=== PATIENT | female | born 1935 | race Caucasian/White ===

== ENCOUNTER → 2017-08-28 | Outpatient (CLI) | payer MEDICARE, BC ==
[~2017-08-28] MED LIST: CARVEDILOL6.25 MG PO; DIGOXIN125 MCG PO; LEVOTHYROXINE25 MCG PO; LISINOPRIL10 MG PO; LORAZEPAM0.5 MG PO; NITROGLYCERIN1 EAC1 TD; PANTOPRAZOLE SO40 MG PO; PROTONIX40 MG/ML PO; SPIRONOLACTONE25 MG PO; TRIAMTERENE-HC1 EAC2
[2017-08-28 10:15] LABS: BILIRUBIN,URINE NEGATIVE (NEGATIVE); CLARITY,URINE SL CLOUDY (CLEAR); COLOR,URINE YELLOW (YELLOW); KETONES,URINE NEGATIVE (NEGATIVE); LEUKOCYTE ESTERASE ,URINE TRACE (NEGATIVE); NITRITE,URINE NEGATIVE (NEGATIVE); PROTEIN,URINE DIPSTICK NEGATIVE (NEGATIVE); URINE UROBILINOGEN 0.2 mg/dL (0.2 - 1)
[2017-08-28 10:23] LABS: EPITHELIAL CELLS,URINE MODERATE /LPF; TRANSITIONAL EPI CELLS,URINE RARE
== END ==
LOC: RAD 09:05
PROVIDERS: ATTEND Internal Medicine Cardiovascular Disease
DX: I82.429 Acute embolism and thrombosis of unspecified iliac vein (principal)
CPT/HCPCS: 81001; 87086; 93971

== ENCOUNTER 2018-04-28 16:52 | Inpatient (IN) | payer MEDICARE, BC ==
[~2018-04-28] VITALS: Ht 170.2 cm; Wt 79.8 kg
[2018-04-28] MEDS: LISINOPRIL 2.5 MG TAB PO SCH (00:20)
[2018-04-28 17:30] LABS: BILIRUBIN,URINE NEGATIVE (NEGATIVE); CLARITY,URINE CLEAR (CLEAR); COLOR,URINE YELLOW (YELLOW); KETONES,URINE NEGATIVE (NEGATIVE); LEUKOCYTE ESTERASE ,URINE TRACE (NEGATIVE); NITRITE,URINE NEGATIVE (NEGATIVE); PROTEIN,URINE DIPSTICK TRACE (NEGATIVE); URINE UROBILINOGEN 0.2 mg/dL (0.2 - 1)
[2018-04-28 17:40] LABS: AMORPHOUS SEDIMENT,URINE MANY (FEW); BACTERIA,URINE MANY /HPF; EPITHELIAL CELLS,URINE MODERATE /LPF; TRANSITIONAL EPI CELLS,URINE FEW
[2018-04-28 17:49] LABS: BASOPHILS % 0.3 % (0.0-1.0); EOSINOPHILS % 0.1 % (0.0-6.0); HEMATOCRIT 34.9 % (34.2-44.1); HEMOGLOBIN 12.1 g/dL (12.0-16.0); LYMPHOCYTES # (AUTO) 0.8 (1.0-3.2); LYMPHOCYTES % 6.1 % (18.0-39.1); MEAN CORPUSCULAR HEMOGLOBIN 29.4 pg (28-32); MEAN CORPUSCULAR HGB CONC 34.7 g/dL (31-35); MEAN CORPUSCULAR VOLUME 84.9 fL (81-99); MONOCYTES # (AUTO) 0.9 (0.2-0.8); MONOCYTES % 6.9 % (4.4-11.3); NEUTROPHILS # (AUTO) 10.7 (2.1-6.9); NEUTROPHILS % 85.2 % (38.7-80.0); PLATELET COUNT 183 x10e3/uL (140-360); RED BLOOD COUNT 4.11 x10e6/uL (3.6-5.1); RED CELL DISTRIBUTION WIDTH 13.3 % (11.7-14.4)
[2018-04-28] MEDS ORDERED: ONDANSETRON HCL INJ 2MG/ML 2ML 2 MG/ML VIAL IV STA (17:58)
[2018-04-28] MEDS ORDERED: SODIUM CHLORIDE 0.9% 1000ML 1,000 ML IV STA (17:58)
[2018-04-28] MEDS ORDERED: CEFTRIAXONE SOD 1 GM/NS 50 ML 50 ML IV STA (17:58)
[2018-04-28] MEDS ORDERED: ATORVASTATIN CA10 MG PO (18:01)
[2018-04-28] MEDS ORDERED: LEVEMIR (18:01)
[2018-04-28] MEDS ORDERED: LISINOPRIL2.5 MG PO (18:01)
[2018-04-28] MEDS ORDERED: HUMALOG100 UNIT/3 SC (18:03)
[2018-04-28] MEDS ORDERED: VERAPAMIL ER120 M1 PO (18:03)
[2018-04-28] MEDS ORDERED: AMOX TR-K CLV1 EAC1 PO (18:06)
[2018-04-28 18:10] LABS: ALBUMIN 2.9 g/dL (3.5-5.0); ALBUMIN/GLOBULIN RATIO 0.6 (0.8-2.0); ANION GAP 14.5 mmol/L (8-16); CALCIUM 9.8 mg/dL (8.4-10.2); CREATININE, SERUM 1.51 mg/dL (0.57-1.11); POTASSIUM 3.5 mmol/L (3.5-5.1)
[2018-04-28 18:16] LABS: INR 0.97; PARTIAL THROMBOPLASTIN TIME 31.5 seconds (23.8-35.5); PROTHROMBIN TIME 13.4 seconds (11.9-14.5)
[2018-04-28 18:26] LABS: CREATINE KINASE MB 4.8 ng/mL (0-5.0)
[2018-04-28] MEDS ORDERED: DEXTROSE 50% SYRINGE 50 ML IV PRN (19:45)
[2018-04-28] MEDS ORDERED: CEFTRIAXONE SOD 1 GM/NS 50 ML 50 ML IV SCH (19:45)
[2018-04-28] MEDS: SODIUM CHLORIDE 0.9% 1000ML 1,000 ML IV SCH ×2 (19:50→21:47)
--- NOTE | 2018-04-28 20:23 | NUR ---
Patient arrived to the unit to Rm 214 (from ED) via stretcher bed in stable condition. Pt alert and oriented x3. Pt appear very weak especially on both legs as she was assisted transferring from stretcher to bed. On IVF (NS @ 125ml/hr) and scheduled IV antibiotics. Pt with dx of Hyponatremia, Renal Insufficiency and UTI. Call vazquez within reach. Daughter at bedside.
[2018-04-28 20:27] VITALS: BP 141/65
[2018-04-28 20:30] VITALS: BP 141/65
[2018-04-28] MEDS: INSULIN REGULAR, HUMAN 100 UNIT/1 ML 3ML VIAL SQ SCH (20:49)
--- NOTE | 2018-04-28 21:00 | NUR ---
Fingerstick blood glucose was 53 and pt immediately given jelo and 2 cups of apple juice. Patient still alert and oriented x3.
--- NOTE | 2018-04-28 21:23 | Diagnostic Imaging Report ---
EXAMINATION: CHEST SINGLE (PORTABLE) INDICATION: Kidney infection. COMPARISON: None FINDINGS: AP view TUBES and LINES: None. LUNGS: Lungs are well inflated. Lungs are clear. There is no evidence of pneumonia or pulmonary edema. PLEURA: No pleural effusion or pneumothorax. HEART AND MEDIASTINUM: The cardiomediastinal silhouette is unremarkable. BONES AND SOFT TISSUES: No acute osseous lesion. Soft tissues are unremarkable. UPPER ABDOMEN: No free air under the diaphragm. IMPRESSION: No acute thoracic abnormality. Signed by: DR. Waqar Winter MD on 04/28/2018 9:20 PM
--- NOTE | 2018-04-28 21:40 | NUR ---
Fingerstick blood glucose was 53 and pt c/o feeling weak and appear shaking a lot. Patient immediately given1 amp of D50% as per protocol.
--- NOTE | 2018-04-28 22:20 | NUR ---
Patient appear well and has not shaking at this time. BS check was 153. Will monitor closely
--- NOTE | 2018-04-28 23:30 | NUR ---
Spoke with Dr. Mario (over the phone) and MD re-ordered all of patient's home medications.
[2018-04-28] MEDS ORDERED: LORAZEPAM0.5 MG PO (23:38)
[2018-04-28] MEDS ORDERED: NITROSTAT0.4 MG (23:38)
[2018-04-28] MEDS ORDERED: SPIRONOLACTONE 25 MG TAB PO PRN (23:45)
[2018-04-28] MEDS ORDERED: NITROGLYCERIN 0.4 MG SUBL SL PRN (23:45)
[2018-04-28] MEDS ORDERED: LORAZEPAM 0.5 MG TAB PO PRN (23:45)
[2018-04-29] VITALS (8 sets, daily range): BP systolic 109–156; BP diastolic 54–67
[2018-04-29] MEDS: ACETAMINOPHEN 325 MG TAB PO PRN ×2 (00:50→22:15)
--- NOTE | 2018-04-29 07:05 | NUR ---
Received patient mid fowlers position, side rails upx2, call light within reach, daughter at bedside. Resting with eyes closed. Arousable to verbal stimuli. Respirations even and unlabored. Will continue to monitor.
[2018-04-29] MEDS: INSULIN REGULAR, HUMAN 100 UNIT/1 ML 3ML VIAL SQ SCH ×4 (07:30→21:38)
[2018-04-29] MEDS: ATORVASTATIN 40 MG TAB PO SCH (08:04)
[2018-04-29] MEDS: LISINOPRIL 2.5 MG TAB PO SCH ×2 (08:04→16:09)
[2018-04-29] MEDS: PANTOPRAZOLE SOD 40 MG TABEC PO SCH (08:04)
[2018-04-29] MEDS: SODIUM CHLORIDE 0.9% 1000ML 1,000 ML IV SCH ×2 (08:05→16:09)
[2018-04-29] MEDS: LEVOTHYROXINE SODIUM 25 MCG TABLET PO SCH (09:44)
[2018-04-29] MEDS: VERAPAMIL HCL 120 MG TABSR PO SCH (09:44)
[2018-04-29] MEDS: AMOXICILLIN/CLAVULANATE K 500 MG TAB PO SCH ×2 (11:00→16:08)
--- NOTE | 2018-04-29 11:31 | NUR ---
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 See orders
--- NOTE | 2018-04-29 14:58 | NUR ---
aware of RUE swelling. See orders
--- NOTE | 2018-04-29 19:20 | NUR ---
Report given to oncoming nurse of patient's status. NO s/s of acute distress noted.
--- NOTE | 2018-04-29 19:25 | NUR ---
Patient visited in room during nursing rounds. Patient alert and oriented x3. No distress or discomfort noted. Patient ambulatory with assist and use of walker in room prn. On IVF (NS at 125ml/hr). Call vazquez within reach. Will monitor closely.
[2018-04-29] MEDS ORDERED: CEFTRIAXONE SOD 1 GM/NS 50 ML 50 ML IV SCH (20:00)
[2018-04-29] MEDS: ONDANSETRON HCL INJ 2MG/ML 2ML 2 MG/ML VIAL IV PRN (22:12)
[2018-04-30] VITALS (7 sets, daily range): BP systolic 128–173; BP diastolic 60–75
[2018-04-30] MEDS: SODIUM CHLORIDE 0.9% 1000ML 1,000 ML IV SCH ×3 (01:39→20:27)
[2018-04-30 05:39] LABS: ANION GAP 11.8 mmol/L (8-16); CALCIUM 8.6 mg/dL (8.4-10.2); CHOL/HDL RATIO 6.6 (3.0-3.6); CREATININE, SERUM 1.16 mg/dL (0.57-1.11); POTASSIUM 3.8 mmol/L (3.5-5.1)
[2018-04-30] MEDS: PANTOPRAZOLE SOD 40 MG TABEC PO SCH (06:09)
[2018-04-30] MEDS: LEVOTHYROXINE SODIUM 25 MCG TABLET PO SCH (06:09)
[2018-04-30] MEDS: INSULIN REGULAR, HUMAN 100 UNIT/1 ML 3ML VIAL SQ SCH ×4 (07:30→21:00)
--- NOTE | 2018-04-30 07:44 | History and Physical ---
HISTORY OF PRESENT ILLNESS: This 82-year-old patient presented through the emergency room and was admitted with urinary tract infection. The patient stated that it started with right lumbar pain, fever, chills, and frequent urination about 5 days ago. She was seen by her bindery library technical assistant Dr. Barahona and started on antibiotics. However, the patient stated that she got worse and became very weak, also she was nauseated, unable to eat and was advised by Dr. Barahona to go to the emergency room and is now admitted to the hospital. The patient stated she had previous urinary tract infections and also history of kidney stones. The patient's past history reveals that she had a cholecystectomy and hemorrhoidectomy. She had contusion of left foot with persistent edema. She has varicosities and stasis dermatitis; hypothyroidism; diabetes mellitus, on insulin; COPD; she had previous myocardial infarction and Takotsubo cardiomyopathy, with some mild coronary artery disease; history of spastic colon and diverticulitis, GERD, and hypertension. ALLERGIES: VICODIN, CEPHALEXIN, VIBRAMYCIN, BENTYL, PARAFON FORTE, DAYPRO, DOXYCYCLINE, CHLORZOXAZONE. SOCIAL HISTORY: Negative. FAMILY HISTORY: Noncontributory. REVIEW OF SYSTEMS: The remainder of systems reviewed. The patient denies any headache or sore throat. The patient denies any cough or sputum production. She denies any chest pain. The patient denies any abdominal pain. PHYSICAL EXAMINATION: VITAL SIGNS: Blood pressure 115/60, temperature 99.3, oxygen saturation 95%. NECK: Carotid pulses are present. CHEST: Clear to auscultation. CARDIOVASCULAR: Normal apical impulse. The rhythm is regular. First and second heart sounds normal. There is no S3. There is no rub. ABDOMEN: Soft. There is no tenderness or organomegaly. EXTREMITIES: Pulses are present. There is evidence of stasis dermatitis, with brownish discoloration of lower legs. There is no edema on the legs; however, there is scarring of right arm. NEUROLOGIC: Does not reveal any motor defect. IMPRESSION: 1. Urinary tract infection. 2. Coronary artery disease. 3. Hypertension. 4. Chronic kidney disease. 5. Hyponatremia. 6. Diabetes mellitus. 7. Hypothyroidism. 8. Hyperlipidemia. 9. Gastroesophageal reflux disease. MD BRADLEY Kelley/FLORL /[id number] cc: John Barahona
[2018-04-30] MEDS: ATORVASTATIN 40 MG TAB PO SCH (09:00)
[2018-04-30] MEDS: AMOXICILLIN/CLAVULANATE K 500 MG TAB PO SCH (09:36)
[2018-04-30] MEDS: LISINOPRIL 2.5 MG TAB PO SCH ×2 (09:36→16:53)
[2018-04-30] MEDS: VERAPAMIL HCL 120 MG TABSR PO SCH (09:36)
[2018-04-30] MEDS ORDERED: LISINOPRIL 2.5 MG TAB PO SCH (12:00)
[2018-04-30] MEDS ORDERED: CEFEPIME HCL 1 GM VIAL IV SCH (12:00)
[2018-04-30] MEDS ORDERED: CEFEPIME 1GM/NS 0.9% 50 ML 50 ML IV SCH (12:05)
[2018-04-30] MEDS ORDERED: LISINOPRIL 2.5 MG TAB PO ONE (13:15)
[2018-04-30 14:33] LABS: AMYLASE 32 U/L (25-125); LIPASE 37 U/L (8-78)
[2018-04-30] MEDS: CEFEPIME 1GM/NS 0.9% 50 ML 50 ML IV SCH (14:40)
--- NOTE | 2018-04-30 16:20 | NUR ---
Patient did not want to hold dinner for CT scan. She stated, "I need to eat." Virginie in CT scan notified and CT will have to be done tomorrow.
[2018-04-30] MEDS: ACETAMINOPHEN 325 MG TAB PO PRN (20:30)
--- NOTE | 2018-04-30 20:30 | NUR ---
PATIENT AWARE NORTRIPTYLINE NOT AVAILABLE FROM PHARMACY AND STATED GRANDDAUGHTER WILL BRING MEDICATION TOMORROW AM. Addendum: 04/30/18 at 2315 by Ramiro Moya RN PLEASE DISREGARD THIS NOTE. WRONG PATIENT.
[2018-05-01] VITALS (8 sets, daily range): BP systolic 136–180; BP diastolic 64–77
--- NOTE | 2018-05-01 01:02 | Consultation ---
DATE OF CONSULTATION: REASON FOR CONSULTATION: UTI and abdominal pain. HISTORY OF PRESENT ILLNESS: This patient is a very pleasant 82-year-old white female, comes in with fever and chills started 5 days ago with diarrhea, then fever, chills, had right-sided abdominal pain going to her mid abdomen and the patient apparently was admitted with UTI. There was concern if she is allergic to cephalosporin. The patient was admitted. She received Rocephin. I am asked to see her. She is currently lying in bed comfortably. She is telling me she had rash. Also she saw a research program intern, who gave her local cream, hydrocortisone and antifungal. The patient was admitted with diagnosis of UTI. I am asked to see her. Her blood cultures, there is no growth. Her urine cultures, there is no growth in 24 hours. Her white count 12.5, hemoglobin 12, and hematocrit 34. Her sodium 132, potassium 3.8, creatinine 1.16. Her chest x-ray is negative. PHYSICAL EXAMINATION: GENERAL: She is currently alert and oriented, does not seem to be in acute distress. VITAL SIGNS: Stable. Currently afebrile. Her T-max 101.1. HEENT: She is . NECK: Supple. CHEST: Clear. Coarse murmur. ABDOMEN: Soft. Bowel sounds present. No tenderness. EXTREMITIES: No edema. The patient did well with Rocephin and is allergic to cefepime. IMPRESSION: 1. Abdominal pain, right side. Cultures for the urine is negative. We will obtain CT abdomen and pelvis. Check amylase, lipase, liver enzyme. 2. Hypertension. 3. Diabetes. 4. Urinary tract infection. 5. History of kidney stone. 6. We will follow depending on the CAT scan. MD MILLER Eduardo/ULI /[id number]
[2018-05-01] MEDS: CEFEPIME 1GM/NS 0.9% 50 ML 50 ML IV SCH ×2 (01:05→14:29)
[2018-05-01] MEDS: LISINOPRIL 2.5 MG TAB PO SCH (04:58)
[2018-05-01] MEDS: LEVOTHYROXINE SODIUM 25 MCG TABLET PO SCH (04:59)
[2018-05-01] MEDS: SODIUM CHLORIDE 0.9% 1000ML 1,000 ML IV SCH ×3 (05:04→19:40)
[2018-05-01] MEDS: ONDANSETRON HCL INJ 2MG/ML 2ML 2 MG/ML VIAL IV PRN (05:04)
[2018-05-01 06:35] LABS: ANION GAP 11.9 mmol/L (8-16); CALCIUM 8.6 mg/dL (8.4-10.2); CREATININE, SERUM 1.07 mg/dL (0.57-1.11); POTASSIUM 3.9 mmol/L (3.5-5.1)
--- NOTE | 2018-05-01 07:00 | NUR ---
RECEIVED BEDSIDE SHIFT REPORT FROM NIGHT RN. PT DENIES NEEDS AT THIS TIME.
[2018-05-01] MEDS: INSULIN REGULAR, HUMAN 100 UNIT/1 ML 3ML VIAL SQ SCH ×4 (07:30→21:30)
[2018-05-01] MEDS: PANTOPRAZOLE SOD 40 MG TABEC PO SCH (08:56)
[2018-05-01] MEDS: VERAPAMIL HCL 120 MG TABSR PO SCH (08:57)
--- NOTE | 2018-05-01 12:59 | Diagnostic Imaging Report ---
CT Abdomen And Pelvis with Intravenous Contrast INDICATION: ^r/o infection ^[id number] ^[id number] TECHNIQUE: Thin collimation axial images obtained from the diaphragm to the level of the pubic symphysis following the uneventful administration of 100 cc of low osmolar, nonionic intravenous contrast. Dose reduction techniques used: Automated exposure control, adjustment of the mAs and/or kVp according to patient size, standardized low-dose protocol, and/or iterative reconstruction technique. RADIATION DOSE: Total DLP: 648.88 mGy*cm Estimated effective dose: (DLP x 0.015 x size factor) mSv CTDIvol has been reviewed. It is below the limits set by the Radiation Protocol Committee (RPC). COMPARISON: None. ABDOMEN FINDINGS: Lung Bases: Posterior pleural effusions, right larger than left measuring up to 2.6 cm. Pericardial effusion measures 10 mm. There is bibasilar atelectasis. Distal esophagus is normal. Liver: Decreased attenuation consistent with steatosis.. No evidence for soft tissue mass. Gallbladder: Absent. No biliary ductal dilatation. Pancreas: Normal attenuation without mass or ductal dilatation. Spleen: Normal in size and contains a punctate granuloma.. Adrenal Glands: No evidence for mass. Kidneys: Right: Diffusely heterogeneous enhancement and mild perinephric inflammation. Collecting system is mildly distended.. No intrarenal calculus. No perinephric fluid collection. Left: Normal enhancement. No soft tissue mass. No hydronephrosis. Lymph Nodes: No enlarged abdominal lymph nodes. Periaortic and aortocaval lymph nodes measure up to 10 mm.. Aorta: Normal in diameter with scattered calcifications PELVIS FINDINGS: Bowel: Stomach: Normal in caliber with normal wall thickness. Small Bowel: Normal in caliber with normal wall thickness. Large Bowel: Diffuse diverticulosis coli, particularly in the sigmoid colon with mural thickening suggestive of previous bouts of diverticulitis. No acute inflammation. Appendix: Normal appendix. Bladder: Well distended and appears normal.. Ureters: No evidence of calculus or dilatation. There is mild right periureteric inflammation. Peritoneum/retroperitoneum: Trace amount of pelvic ascites. No loculated fluid collection. Tiny calcifications surrounding the liver, particularly the right lobe, may represent dropped gallstones. The uterus is present. There are nabothian cysts in the cervix. No adnexal mass. Bones: Mild to moderate degenerative changes of the spine. Minimal levoscoliosis of the lumbar spine. No compression deformities. No lytic or blastic lesions. Soft tissues: Laxity of the linea alba at the umbilicus without remberto hernia. There is edema in the flanks. IMPRESSION: 1. Heterogeneous enhancement of the right kidney with perinephric inflammation. Findings are concerning for pyelonephritis. Please correlate with urinalysis/urine culture. Recommend follow-up CT in 3-4 weeks to document interval change. No hydroureteronephrosis. 2. Diverticulosis coli. No evidence for bowel obstruction or inflammation. 3. Bilateral pleural effusions as described above. Moderate pericardial effusion. 4. Status post cholecystectomy with punctate calcifications in the right upper quadrant which may represent dropped gallstones. Signed by: Dr. Emma Patel MD on 05/01/2018 12:56 PM
[2018-05-01] MEDS: LISINOPRIL 10 MG TAB PO SCH ×2 (14:29→16:47)
--- NOTE | 2018-05-01 18:41 | Diagnostic Imaging Report ---
EXAMINATION: CHEST 2 VIEWS INDICATION: ^CHF ^[id number] ^1753 COMPARISON: CT abdomen/pelvis 05/01/2018, chest x-ray 04/28/2018 FINDINGS: PA and lateral views TUBES and LINES: None. LUNGS: Lungs are well inflated. There is bibasilar atelectasis or small infiltrates. A 5 mm calcified granuloma is in the left lung base PLEURA: No pleural effusion or pneumothorax. HEART AND MEDIASTINUM: Mild central vascular congestion. The cardiomediastinal silhouette is unremarkable.. BONES AND SOFT TISSUES: No focal osseous lesions. Soft tissues are unremarkable. UPPER ABDOMEN: No free air under the diaphragm. IMPRESSION: Bilateral pleural effusions with bibasilar atelectasis or small infiltrates. Mild central vascular congestion. Signed by: Dr. Emma Patel MD on 05/01/2018 6:38 PM
[2018-05-02] VITALS (7 sets, daily range): BP systolic 130–177; BP diastolic 60–74
[2018-05-02] MEDS: CEFEPIME 1GM/NS 0.9% 50 ML 50 ML IV SCH ×2 (01:29→13:55)
[2018-05-02] MEDS: SODIUM CHLORIDE 0.9% 1000ML 1,000 ML IV SCH ×2 (03:40→12:26)
[2018-05-02] MEDS: LEVOTHYROXINE SODIUM 25 MCG TABLET PO SCH (05:14)
--- NOTE | 2018-05-02 07:00 | NUR ---
RECEIVED BEDSIDE SHIFT REPORT FROM NIGHT RN. PT DENIES NEEDS AT THIS TIME.
[2018-05-02] MEDS: INSULIN REGULAR, HUMAN 100 UNIT/1 ML 3ML VIAL SQ SCH ×4 (07:30→21:00)
[2018-05-02] MEDS: PANTOPRAZOLE SOD 40 MG TABEC PO SCH (08:28)
[2018-05-02] MEDS: VERAPAMIL HCL 120 MG TABSR PO SCH (09:28)
[2018-05-02] MEDS: LISINOPRIL 10 MG TAB PO SCH ×2 (09:28→18:04)
[2018-05-02] MEDS: FUROSEMIDE 20 MG TAB PO SCH ×2 (13:55→18:04)
[2018-05-03] VITALS (8 sets, daily range): BP systolic 126–182; BP diastolic 61–77
[2018-05-03] MEDS: CEFEPIME 1GM/NS 0.9% 50 ML 50 ML IV SCH (01:33)
[2018-05-03] MEDS: FUROSEMIDE 20 MG TAB PO SCH ×2 (05:30→17:28)
[2018-05-03] MEDS: LEVOTHYROXINE SODIUM 25 MCG TABLET PO SCH (05:30)
[2018-05-03] MEDS: INSULIN REGULAR, HUMAN 100 UNIT/1 ML 3ML VIAL SQ SCH ×4 (07:30→21:00)
[2018-05-03] MEDS: PANTOPRAZOLE SOD 40 MG TABEC PO SCH (09:39)
[2018-05-03] MEDS: VERAPAMIL HCL 120 MG TABSR PO SCH (09:39)
[2018-05-03] MEDS: LISINOPRIL 10 MG TAB PO SCH (09:40)
[2018-05-03] MEDS: ONDANSETRON HCL INJ 2MG/ML 2ML 2 MG/ML VIAL IV PRN (09:40)
[2018-05-03] MEDS ORDERED: CEPHALEXIN 500 MG CAP PO SCH ×3 (12:00→14:00)
[2018-05-03] MEDS: LISINOPRIL 20 MG TAB PO SCH ×2 (13:29→17:28)
[2018-05-03] MEDS: FAMOTIDINE 20 MG TAB PO SCH ×2 (13:29→17:28)
--- NOTE | 2018-05-03 14:44 | NUR ---
CM SPOKE TO PATIENT AT BEDSIDE REGARDING IMM LETTER. IMM LETTER GIVEN WITH EXPLANATION. ORIGINAL SIGNED AND PLACED IN CHART; COPY OF ORIGINAL DOCUMENT GIVEN TO PATIENT AT BEDSIDE AND PLACED IN CARE TRANSITION FOLDER. CM CONTACT INFORMATION GIVEN TO PATIENT FOR ANY NEEDS OR CONCERNS. PATIENT WITH NO FURTHER QUESTIONS.
[2018-05-03] MEDS: POLYETHYLENE GLYCOL 3350 17 GM PACK PO SCH (17:28)
[2018-05-03] MEDS: CEPHALEXIN 500 MG CAP PO SCH (17:28)
--- NOTE | 2018-05-03 19:05 | NUR ---
RECEIVED PATIENT RESTING IN BED. NO ACUTE DISTRESS NOTED. DENIES PAIN OR DISCOMFORT. CALL LIGHT WITHIN REACH. BED IN THE LOWEST POSITION. CALL LIGHT WITHIN REACH. BED IN THE LOWEST POSITION. BED ALARM ON.
--- NOTE | 2018-05-03 19:08 | NUR ---
Report given to oncoming nurse of patient's status. Walking rounds done. NO s/s of acute distress noted.
[2018-05-04] VITALS (7 sets, daily range): BP systolic 124–167; BP diastolic 57–74
[2018-05-04] MEDS: CEPHALEXIN 500 MG CAP PO SCH ×3 (00:04→16:24)
[2018-05-04 05:41] LABS: ANION GAP 10.1 mmol/L (8-16); CALCIUM 8.3 mg/dL (8.4-10.2); CREATININE, SERUM 0.98 mg/dL (0.57-1.11); POTASSIUM 4.1 mmol/L (3.5-5.1)
[2018-05-04] MEDS: FUROSEMIDE 20 MG TAB PO SCH ×2 (05:50→16:24)
[2018-05-04] MEDS: LEVOTHYROXINE SODIUM 25 MCG TABLET PO SCH (05:50)
--- NOTE | 2018-05-04 07:05 | NUR ---
REPORT GIVEN TO ONCOMING NURSE. PATIENT IS RESTING IN BED, NO ACUTE DISTRESS NOTED. CALL LIGHT WITHIN REACH. BED IN THE LOWEST POSITION.
[2018-05-04] MEDS: INSULIN REGULAR, HUMAN 100 UNIT/1 ML 3ML VIAL SQ SCH ×4 (07:30→20:22)
[2018-05-04] MEDS: PANTOPRAZOLE SOD 40 MG TABEC PO SCH (08:19)
[2018-05-04] MEDS: POLYETHYLENE GLYCOL 3350 17 GM PACK PO SCH (08:19)
[2018-05-04] MEDS: FAMOTIDINE 20 MG TAB PO SCH ×2 (08:19→16:24)
[2018-05-04] MEDS: VERAPAMIL HCL 120 MG TABSR PO SCH (08:20)
--- NOTE | 2018-05-04 14:00 | NUR ---
Paged to notify patient requesting home health upon discharge. Awaiting for call back.
--- NOTE | 2018-05-04 14:40 | NUR ---
CM SPOKE TO PATIENT AT BEDSIDE REGARDING WALKER AND REQUESTED HOME HEALTH SERVICES. PATIENT STATES THE PHYSICIAN HAS SPOKEN TO HER. PATIENT INFORMED OF HOME HEALTH SERVICES AND GIVEN CHOICES. PATIENT CHOSE [facility] SINCE HER HAD IT AND THEY ENJOYED THEIR SERVICES. PATIENT SIGNED CHOICE LETTER. CHOICE LETTER PLACED IN CHART. PATIENT ALSO CHOSE [facility] TO SUPPLY HER WALKER SINCE IT CAN BE SUPPLIED TODAY. WALKER DELIVERED TO BEDSIDE. [facility] FORM SIGNED AND STAPLED TO FACESHEET AND ORDER THEN PLACED ON CHART FOR PHYSICIAN TO SIGN. BEDSIDE CYNTHIA RAVI NOTIFIED. CLINICAL FOR HOME HEALTH SERVICES PENDING TO BE SENT WHEN BEDSIDE CYNTHIA RAVI RECEIVES OFFICIAL ORDERS. PATIENT REQUESTS: [facility] FAX: [phone] PHONE: [phone]
[2018-05-04] MEDS: LISINOPRIL 20 MG TAB PO SCH (16:24)
--- NOTE | 2018-05-04 17:36 | NUR ---
Nutrition Screen Note RD Recommendation for Physician: -Continue ADA diet as ordered Plan of Care: RD following, monitoring for tolerance and adequacy Nutrition reason for involvement: LOS Primary Diagnose(s): UTI PMH: varicosities and stasis dermatitis; hypothyroidism; diabetes mellitus, on insulin; COPD; myocardial infarction and Takotsubo cardiomyopathy, with some mild coronary artery disease; history of spastic colon and diverticulitis, GERD, and hypertension. Ht: 67in Wt: 176lb BMI: 27.6kg/m2 IBW: 135lb RD Assessment: (05/04) Chart reviewed. Labs and meds reviewed. 82 yo F, who was admitted for UTI. Visited pt in the room. Pt reported fair appetite. Tech recorded 75-100% meal intake since admission. Pt also reported nausea and med was given. No vomiting episode noted. LBM 3/ after Miralax was given. No chewing or swallowing difficulty reported. No recent weight loss reported. Will continue to monitor and follow. Current Diet: ADA diet Malnutrition Evaluation (05/04) The patient does not meet criteria for a specified degree of malnutrition at this time. Will re-evaluate at follow-up as appropriate. Diet Education Needs Assessment: Diet education not indicated. Nutrition Care Level: low Signed: Donna Méndez, MS, RD, LD
--- NOTE | 2018-05-04 19:21 | NUR ---
Report given to oncoming nurse of patient's status. No s/s of acute distress noted.
[2018-05-05] VITALS: BP 164/70
[2018-05-05] MEDS: CEPHALEXIN 500 MG CAP PO SCH ×2 (01:14→09:00)
[2018-05-05 01:55] VITALS: BP 151/69
[2018-05-05] MEDS: LEVOTHYROXINE SODIUM 25 MCG TABLET PO SCH (05:29)
[2018-05-05] MEDS: FUROSEMIDE 20 MG TAB PO SCH (05:29)
[2018-05-05 06:48] VITALS: BP 142/64
--- NOTE | 2018-05-05 07:10 | NUR ---
RCD PT AT BED PT IS ALERT AND ORIENTED PT RESTING ON BED NO SIGNS OF ANY DISTRESS NOTED IV PATENT BED LOW AND LOCKED CALL LIGHT IN REACH
[2018-05-05] MEDS: FAMOTIDINE 20 MG TAB PO SCH (07:30)
[2018-05-05] MEDS: INSULIN REGULAR, HUMAN 100 UNIT/1 ML 3ML VIAL SQ SCH ×2 (07:30→11:30)
[2018-05-05] MEDS: PANTOPRAZOLE SOD 40 MG TABEC PO SCH (07:30)
[2018-05-05 08:00] VITALS: BP 129/62
--- NOTE | 2018-05-05 08:15 | NUR ---
AC TO [facility] WRAPPING EXAMINER PT AT HOME AND WALKER READY FOR THE PT PAGED DR KOO TO GET THE DISCHARGE ORDER
[2018-05-05] MEDS: VERAPAMIL HCL 120 MG TABSR PO SCH (09:00)
[2018-05-05] MEDS: POLYETHYLENE GLYCOL 3350 17 GM PACK PO SCH (09:00)
--- NOTE | 2018-05-05 11:02 | NUR ---
DR SIDHU OFFICE RETURNED THE CALL (GERA )SHE SAID PT CAN GO HOME AND ALSO GOT THE HOME HEALTH ORDER
[2018-05-05] MEDS ORDERED: KEFLEX500 MG PO (11:27)
[2018-05-05 12:02] VITALS: BP 114/56
[2018-05-05] MEDS: ONDANSETRON HCL INJ 2MG/ML 2ML 2 MG/ML VIAL IV PRN (12:48)
--- NOTE | 2018-05-05 13:52 | NUR ---
PT WENT HOME IN SAFE CONDITION WITH HER DAUGHTER
--- NOTE | 2018-05-05 16:06 | NUR ---
LATE ENTRY: CM SPOKE TO PATIENT AT BEDSIDE REGARDING IMM LETTER. IMM LETTER GIVEN WITH EXPLANATION BASED ON ANTICIPATED DISCHARGE DATE. ORIGINAL SIGNED AND PLACED IN CHART; COPY OF ORIGINAL DOCUMENT GIVEN TO PATIENT AT BEDSIDE AND PLACED IN CARE TRANSITION FOLDER. CM CONTACT INFORMATION GIVEN TO PATIENT FOR ANY NEEDS OR CONCERNS. PATIENT WITH NO FURTHER QUESTIONS.
== END 2018-05-05 13:52 | disposition home health service (06) | DRG 689 ==
LOC: ER 16:52 → ERHOLD 19:48 → MED/SURG2 20:31
PROVIDERS: ADMIT Internal Medicine Cardiovascular Disease; ATTEND Internal Medicine Cardiovascular Disease
DX: N39.0 Urinary tract infection, site not specified (principal); N17.0 Acute kidney failure with tubular necrosis; E87.1 Hypo-osmolality and hyponatremia; I51.81 Takotsubo syndrome; K57.92 Diverticulitis of intestine, part unspecified, without perforation or abscess without bleeding; I87.2 Venous insufficiency (chronic) (peripheral); E03.9 Hypothyroidism, unspecified; Z79.4 Long term (current) use of insulin; J44.9 Chronic obstructive pulmonary disease, unspecified; I25.2 Old myocardial infarction; I25.10 Atherosclerotic heart disease of native coronary artery without angina pectoris; E78.5 Hyperlipidemia, unspecified; K21.9 Gastro-esophageal reflux disease without esophagitis; N12 Tubulo-interstitial nephritis, not specified as acute or chronic; E11.22 Type 2 diabetes mellitus with diabetic chronic kidney disease; I12.9 Hypertensive chronic kidney disease with stage 1 through stage 4 chronic kidney disease, or unspecified chronic kidney disease; N18.1 Chronic kidney disease, stage 1
CPT/HCPCS: 36415; 71045; 71046; 74177; 80048; 80053; 80061; 81001; 82150; 82550; 82553; 82948; 83605; 83690; 84484; 85025; 85610; 85730; 87040; 87086; 93005; 93306; 93970; 96372; 99284; J0692; J0696; J2405; J7030; J7799

== ENCOUNTER → 2018-05-27 | Outpatient (CLI) | payer MEDICARE, BC ==
[~2018-05-27] MED LIST changes: +AMOX TR-K CLV1 EAC1 PO; +ATORVASTATIN CA10 MG PO; +HUMALOG100 UNIT/3 SC; +KEFLEX500 MG PO; +LEVEMIR; +LISINOPRIL2.5 MG PO; +NITROSTAT0.4 MG; +VERAPAMIL ER120 M1 PO
== END ==
LOC: LAB 14:09
PROVIDERS: ATTEND Internal Medicine Cardiovascular Disease
DX: R30.0 Dysuria (principal); N39.0 Urinary tract infection, site not specified
CPT/HCPCS: 87086; 87186

== ENCOUNTER → 2018-06-17 | Outpatient (CLI) | payer MEDICARE, BC ==
[2018-06-17 16:20] LABS: BILIRUBIN,URINE NEGATIVE (NEGATIVE); CLARITY,URINE SL CLOUDY (CLEAR); COLOR,URINE YELLOW (YELLOW); KETONES,URINE NEGATIVE (NEGATIVE); LEUKOCYTE ESTERASE ,URINE 2+ (NEGATIVE); NITRITE,URINE NEGATIVE (NEGATIVE); PROTEIN,URINE DIPSTICK NEGATIVE (NEGATIVE); URINE UROBILINOGEN 0.2 mg/dL (0.2 - 1)
== END ==
LOC: LAB 14:53
PROVIDERS: ATTEND Internal Medicine Cardiovascular Disease
DX: N39.0 Urinary tract infection, site not specified (principal)
CPT/HCPCS: 81003; 87086; 87186